=== PATIENT | female | born 1970 | race Caucasian/White ===

== ENCOUNTER → 2020-12-19 12:47 | Outpatient (BNVA) | payer OTHER, SELFPAY | PROVIDERS: PCP Physician Assistant; Visit Provider Advanced Practice Midwife ==

== ENCOUNTER 2021-12-25 09:43 | Outpatient (REF) | payer OTHER, SELFPAY ==
[2021-12-25 14:29] LABS: CT PCR NOT DETECTED (Not Detect.); NG PCR NOT DETECTED (Not Detect.)
[2021-12-26 09:19] LABS: BV Int Neg Control Negative (Negative); BV Int Pos Control Positive (Positive)
[2021-12-27 14:37] LABS: HPV mRNA E6/E7 rflx Not Detected (Not Detected)
== END 2021-12-25 09:44 | disposition home or self-care (01) ==
LOC: HO.LAB 09:43
PROVIDERS: Visit Provider Advanced Practice Midwife
DX: Z01.419 Encounter for gynecological examination (general) (routine) without abnormal findings (principal); Z11.51 Encounter for screening for human papillomavirus (HPV)
CPT/HCPCS: 87480; 87491; 87510; 87591; 87624; 87660; 88142

== ENCOUNTER 2022-04-13 10:42 | Outpatient (REF) | payer OTHER, SELFPAY ==
[2022-04-22 04:57] LABS: HPV mRNA E6/E7 rflx Not Detected (Not Detected)
== END 2022-04-13 10:43 | disposition home or self-care (01) ==
LOC: HO.LNP 10:42
PROVIDERS: Visit Provider Advanced Practice Midwife
DX: Z01.419 Encounter for gynecological examination (general) (routine) without abnormal findings (principal); Z11.51 Encounter for screening for human papillomavirus (HPV); R87.615 Unsatisfactory cytologic smear of cervix
CPT/HCPCS: 87624; 88142; 99212

== ENCOUNTER 2023-04-01 14:15 | Outpatient (AMB) | payer OTHER, SELFPAY ==
--- NOTE | 2023-04-01 14:17 | A.OFFVIS_ITS ---
Intake Vital Signs 04/01/23 14:20 Height 5 ft 1.5 in Weight 100 lb BMI 18.6 BP 108/72 Intake Visit Reasons: Annual Do not reschedule Intake Note: Scribed for Maryan Beavers CNM by Clarice Dailey medical office professional instructor, on 04/01/2023 at 2:52 PM, EST Wagon Drill Operator: Wagon Drill Operator Present (Leah) Allergies acetaminophen [Tylenol] Allergy (Intermediate, Verified 04/01/23 14:19) Vomiting aspirin Allergy (Unknown, Verified 04/01/23 14:19) ringing in the ears morphine Allergy (Unknown, Verified 04/01/23 14:19) blood pressure drop, Blood Pressure drops HPI HPI Comments History of Present Illness Details The patient is a 52 year old postmenopausal woman presenting for an annual exam.? Doing well with no obstetrician gynecologist concerns. Tries to eat healthy and stays active with exercise. Reports an increase in her sugar intake. Not sexually active. Denies vaginal itching and irritation. Denies family hx of breast, colon and ovarian cancer. Last pap smear; negative. Last mammogram UTD on colonoscopy. Informed me she will be moving out of the area in the near future. . 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 Gender identity: Female Female Reproductive History Menstrual Age of Menarche: 12 Menopause type: surgical Total pregnancies: 0 Date of last pap smear: 04/13/22 (neg pap and hpv) History of abnormal pap smear: Yes (10/16 +hpv) Date of Mammogram: 05/27/22 (Birad 1) Review of Systems Const All systems reviewed & are unremarkable except as noted in HPI and below Reports as per HPI Eyes Reports no additional complaints ENT Reports no additional complaints Card Reports no additional complaints Resp Reports no additional complaints GI Reports as per HPI and Reports no additional complaints Reports as per HPI Musc Reports no additional complaints Skin/Breast Reports as per HPI Neuro Reports no additional complaints Psych Reports no additional complaints Endo Reports no additional complaints Renato/Lymph Reports no additional complaints Aller/Immun Reports no additional complaints Physical Exam Vital Signs: Last Vital Signs BP 108/72 04/01/23 14:20 BMI result Body Mass Index 18.6 Const General: cooperative, healthy appearing, no acute distress, well developed and alert Orientation/consciousness: patient oriented x3 HEENT Head: Yes normal to inspection Eyes General: appearance normal, both eyes and all related structures Neck Neck: Yes normal visual inspection Thyroid: Thyroid normal Chest Chest palpation & inspection: normal inspection of the chest and other (no puckering, dimpling, peau de orange, retraction, discharge, masses) Breast/axilla inspection: normal inspection of the breasts Breast/axilla palpation: normal palpation of the breasts Resp Effort & Inspection: normal respiratory effort GI Inspection: Yes normal to inspection Palpation (GI): Soft to palpation Rectal Exam - Female: deferred Other: narrow inlet, smallest speculum utilized General: Yes bladder normal to palpation External Female Exam: normal external appearance and normal appearance of the urethra Speculum Exam - Vagina: normal appearance of the vagina, normal palpation, normal vaginal discharge and vagina atrophic Speculum Exam - Cervix: normal appearance of the cervix and normal palpation Bimanual exam- vagina & uterus: normal bimanual exam, normal palpation, bladder normal to palpation, normal palpation and uterus absent Bimanual Exam- Adnexa, other: no masses Skin General skin exam: no rashes or lesions noted Rashes: no rashes Neuro General: patient oriented x3 Cognition (Neuro): normal cognition Extrem General: Yes normal to inspection Psych Attitude: cooperative Thought process: Normal thought process present Assessment & Plan Assessment & Plan (1) Encounter for well woman exam with routine gynecological exam: Code(s): Z01.419 - Encounter for gynecological examination (general) (routine) without abnormal findings Plan Discussed: Current recommendations for pap smears per ASCCP guidelines. Breast awareness, periodic self breast exams and yearly mammogram. Maintain a healthy lifestyle, well balanced diet including Calcium 1,200 mg and Vitamin D 600 IU daily, and routine exercise. All of her questions and concerns were addressed to the best of my ability. RTO in 1 year for annual obstetrician gynecologist exam. Release records to new practice when confirmed. External order for mammogram placed. Orders: Orders MM tomosynthesis screening BI Today Z12.31 - Encounter for screening mammogram for malignant neoplasm of breast Coding Level of Care Code Est Pt Prev Care 40-64y(38031) Diagnoses Encounter for well woman exam with routine gynecological exam Z01.419
[2023-04-01 14:20] VITALS: BP 108/72; BMI 18.6
== END 2023-04-01 15:10 | disposition home or self-care (01) ==
PROVIDERS: PCP Nurse Practitioner Family; Visit Provider Advanced Practice Midwife
DX: Z01.419 Encounter for gynecological examination (general) (routine) without abnormal findings (principal)
CPT/HCPCS: 99396

== ENCOUNTER → 2023-04-01 14:15 | Outpatient (BNVA) | payer OTHER, SELFPAY | PROVIDERS: PCP Nurse Practitioner Family; Visit Provider Advanced Practice Midwife | DX: Z01.419 Encounter for gynecological examination (general) (routine) without abnormal findings (principal) | CPT/HCPCS: 99396 ==

== ENCOUNTER 2023-04-14 14:53 | Outpatient (AMB) | payer OTHER, SELFPAY ==
[2023-04-14 15:02] VITALS: BP 116/80; PULSE 112; O2SAT 98; BMI 18.9
--- NOTE | 2023-04-14 15:02 | A.OFFPC_ITS ---
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 Research And Development Researcher Required: No Accompanied by: Self / Same As Patient Allergies egg Allergy (Severe, Verified 04/14/23 15:37) Gastrointestinal Upset acetaminophen [Tylenol] Allergy (Intermediate, Verified 04/14/23 15:37) Vomiting aspirin Allergy (Unknown, Verified 04/14/23 15:37) ringing in the ears morphine Allergy (Unknown, Verified 04/14/23 15:37) blood pressure drop, Blood Pressure drops Medication List - Last Reconciled 04/14/23 by Vinod Jang PA-C levothyroxine 75 mcg PO DAILY Tobacco use date assessed: 04/14/23 Dental Screening Dental Screen Date: 04/14/23 Did you have a dental visit in the last 12 months?: Yes Did you have a dental problem in the last 6 months where you did not have access to dental care?: No Was dental information given to patient?: Patient has dentist HPI 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 Patient's past medical history significant for hypothyroidism (hoshimotios) , fibromyalgia, and continues on levothyroxine. .. Concern--? Reports having right ear sense congestion and feels that there is some fluid in her ear. This has been a existing condition for her entire life.. .. Hypothyroidism: Has Jaci's. Patient continues on levothyroxine 75 mcg 6 days a week. She reports her TSH has been stable Vaccines: declines flu vaccine, UTD with COVID vaccine > UTd with Tdap, UTD with shingrex (2021) . Colon cancer screening:has done Cologaurd ( 2021)- negative. . mammo: Goes to [facility] for mammo every year [facility] Medical History (Updated 04/20/23 @ 07:46 by Vinod Jang PA-C) Abnormal Pap smear of cervix Fibromyalgia Hypothyroid Surgical History History of partial hysterectomy H/O plastic surgery Family History Father Diabetes Prostate cancer Mother HTN (hypertension) Osteoporosis Maternal Grandmother Breast cancer Maternal Aunt Breast cancer Family/Other Breast cancer Household Members: Spouse Housing: House Alcohol intake: never Patient Tobacco Use Status: Never used Tobacco e-Cigarette/Vaping Use: Never Used service: No Current occupational status: employed 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 1. Little interest or pleasure in doing things: not at all 2. Feeling down, depressed, or hopeless: not at all 3. Trouble falling or staying asleep, or sleeping too much: not at all 4. Feeling tired or having little energy: not at all 5. Poor appetite or overeating: not at all 6. Feeling bad about yourself - or that you are a failure or have let yourself or your family down: not at all 7. Trouble concentrating on things, such as reading the newspaper or watching television: not at all 8. Moving or speaking so slowly that other people could have noticed. Or the opposite - being so fidgety or restless that you have been moving around a lot more than usual: not at all 9. Thoughts that you would be better off or of hurting yourself in some way: not at all Total score: 0 Depression Screening Interpretation: Negative Depression Screening Done: Yes 96517 - PHQ-9 Billing: Yes Source: Developed by Drs. Quentin Matos, Melissa Tyler, Ady Montero and colleagues, with an educational ivette from [employer]. Thrive Questionnaire Date Thrive assessed: 04/14/23 I am a: Patient What is your living situation today?: I have a steady place to live Within the past 12 months, did the food you bought not last and you didn't have the money to get more?: Never true Within the past 12 months, did you worry whether your food would run out before you got money to buy more?: Never true Do you have trouble paying for medicines?: No Do you have trouble getting transportation to medical appointments?: No Do you have trouble paying your heating and electricity bill?: No Do you have trouble taking care of your child, family member or friend?: No Do you have trouble with day-to-day activities such as bathing, preparing meals, shopping, managing finances, etc.?: No Are you currently unemployed and looking for a job?: No Are you interested in more education?: No Please select the resources that you would like help with: None Currently or been in a relationship where the following occur: no concerns reported AUDIT C Alcohol Use Questionnaire (AUDIT-C) 1. How often do you have a drink containing alcohol?: Never 3. How often do you have six or more drinks on one occasion?: Never Total Score: 0 AXEL-7 AMB Questionnaire AXEL-7 Date AXEL - 7 assessed: 04/14/23 Feeling nervous, anxious, or on edge: 0 = Not at all Not being able to stop or control worryin = Not at all Worrying too much about different things: 0 = Not at all Trouble relaxin = Not at all Being so restless that it is hard to sit still: 0 = Not at all Becoming easily annoyed or irritable: 0 = Not at all Feeling afraid as if something awful might happen: 0 = Not at all Total AXEL-7 score (0-4 normal; 5-9 mild; 10-14 moderate; 15-21 severe): 0 Source: Developed by Drs. Quentin Matos, Melissa Tyler, Ady Montero and colleagues, with an educational ivette from [employer]. AXEL-7 Assessment Billing AXEL-7 Assessment Tool: AXEL-7 Assessment 82033 Review of Systems Const Denies body aches, Denies chills, Denies excessive sweating, Denies fatigue, Denies fever(s) and Denies headache(s) Eyes Denies blurry vision ENT Denies dysphagia, Denies vertigo, Denies dizziness, Denies headache(s), Denies hearing loss and Denies tinnitus Card Denies chest pain, Denies chest pain with activity, Denies syncope, Denies irregular heart rhythm and Denies dyspnea Resp Denies chest congestion, Denies cough, Denies hemoptysis, Denies dyspnea and Denies wheezing GI Denies abdominal pain, Denies melena, Denies hematochezia, Denies coffee ground emesis, Denies dysphagia, Denies diarrhea, Denies nausea and Denies vomiting Denies urinary frequency, Denies dysuria, Denies urinary hesitancy and Denies urinary urgency Musc Denies arthralgias, Denies limited range of motion, Denies muscle cramps and Denies muscle weakness Skin/Breast Denies rash and Denies skin ulcer Neuro Denies Abnormal speech present, Denies confusion, Denies vertigo, Denies dizziness, Denies syncope, Denies headache(s), Denies memory loss and Denies seizure-like activity Psych Denies anxiety, Denies confusion, Denies depression, Denies memory loss, Denies panic attacks and Denies paranoia Endo Denies excessive sweating, Denies fatigue, Denies flushing, Denies polydipsia and Denies polyuria Aller/Immun Denies wheezing Physical exam (Primary Care) Vital Signs: Last Vital Signs Pulse 112 H 04/14/23 15:02 BP 116/80 04/14/23 15:02 Pulse Ox 98 04/14/23 15:02 Oxygen Delivery Method Room Air 04/14/23 15:02 BMI result Body Mass Index 18.9 Tobacco/Smoking Status: Tobacco use Status Tobacco use date assessed 04/14/23 04/14/23 15:19 Patient Tobacco Use Status Never used Tobacco 04/14/23 15:05 e-Cigarette/Vaping Use Never Used 04/14/23 15:19 PHQ-9: PHQ-9 Score PHQ-9: Total score 0 04/14/23 15:46 Depression Screening Interpretation: Negative Thrive Assessment: Date of Thrive Assessment Date Thrive assessed 04/14/23 04/14/23 15:19 Currently or been in a relationship where the following occur: no concerns reported Const General: cooperative, comfortable, no acute distress, alert and awake; No confusion Orientation/consciousness: oriented to person, oriented to place, patient oriented x3 and No confusion HENMT Head: Yes normocephalic Ears: external ears normal and TM's normal bilaterally Face and sinus: No sinus tenderness Mouth: Normal oral and palatal mucosa present and tongue normal Teeth and gingiva: dentition normal and gingiva normal Throat: Yes posterior oropharynx normal, Yes tonsils normal and Yes uvula midline Eyes Conjunctivae: conjunctivae normal Sclerae: sclerae normal Pupils: Equal, round and reactive pupils present EOM: EOMs intact bilaterally Direct Ophthalmoscopy: No no photophobia Neck Neck: Yes no lymphadenopathy, No tender and Yes no JVD Thyroid: Thyroid normal Carotids: no bruits Chest Chest palpation & inspection: no tenderness Resp Effort & Inspection: normal respiratory effort, no audible wheezes, not labored and no stridor Auscultation: no crackles, no rales, no rhonchi and no wheezes Cardio Jugular venous distension: no JVD Rate: regular rate, not bradycardic and not tachycardic Rhythm: regular rhythm Bruits: no carotid bruits Peripheral pulses: Peripheral pulses 2+ throughout GI Inspection: Yes normal to inspection, No abdominal wall ecchymosis and No visible herniation Palpation (GI): Soft to palpation, nontender, no guarding, not rigid and No hepatosplenomegaly present Auscultation: normoactive bowel sounds General: Yes no CVA tenderness Back/Spine/Pelvis Back: no CVA tenderness and No back tenderness Cervical Spine: cervical ROM normal Thoracic/Lumbar Spine: thoracic and lumbar spine normal to inspection, straight leg raise negative bilaterally, No thoraco-lumbar ROM limited and No lumbar spinal tenderness Skin Lesions: no lesions Rashes: no rashes Wounds: no wounds Neuro General: oriented to person, oriented to place, patient oriented x3, CN's II-XI intact bilaterally and No confusion Cranial nerves: Yes Equal, round and reactive pupils present and Yes Normal accommodation reflex present Cognition (Neuro): normal cognition Speech: No Abnormal speech present Gait exam (Neuro): Normal gait present Motor exam (neuro): 5/5 motor strength present throughout Extrem Right upper extremity: full ROM; no cyanosis Left upper extremity: full ROM; no cyanosis Right lower extremity: no edema Left lower extremity: no edema Psych Appearance: grossly normal Mental Status: mental status grossly normal Affect: normal affect Attitude: cooperative Thought process: Normal thought process present Assessment and Plan Assessment & Plan (1) Annual physical exam: Code(s): Z00.00 - Encounter for general adult medical examination without abnormal findings (2) Screening for diabetes mellitus (DM): Code(s): Z13.1 - Encounter for screening for diabetes mellitus (3) Hypothyroid: Code(s): E03.9 - Hypothyroidism, unspecified Qualifiers: Hypothyroidism type: unspecified Qualified Code(s): E03.9 - Hypothyroidism, unspecified Plan: Continues on levothyroxine 75 mcg 6 times a week. She reports her TSHs have been stable with his weekly dose. (4) ETD (eustachian tube dysfunction): Code(s): H69.90 - Unspecified Eustachian tube disorder, unspecified ear Qualifiers: Laterality: right Qualified Code(s): H69.91 - Unspecified Eustachian tube disorder, right ear Plan: Patient does seem to have eustachian tube dysfunction. Advised on allergy medication and nasal spray. She does have a history of a cleft palate which likely is contributing to her eustachian tube dysfunction. She does follow in ENT. (5) History of breast cancer in female: Code(s): Z85.3 - Personal history of malignant neoplasm of breast Plan: Gets mammograms done at [facility] an annual basis since she was in her 30s to her family history of breast cancer. Orders: Orders TSH reflex Free T4 04/14/23 E03.9 - Hypothyroidism, unspecified Comprehensive [place]. Panel Fast 04/14/23 Z13.1 - Encounter for screening for diabetes mellitus Medications: Changed From levothyroxine 75 mcg PO DAILY E03.9 - Hypothyroidism, unspecified To levothyroxine 75 mcg PO DAILY 90 days 90 caps 1RF E03.9 - Hypothyroidism, unspecified Coding Level of Care Code New Pt Prev Care 40-64y(82648) Diagnoses Annual physical exam Z00.00 Screening for diabetes mellitus (DM) Z13.1 Hypothyroidism, unspecified type E03.9 Hypothyroidism type: unspecified Dysfunction of right eustachian tube H69.91 Laterality: right History of breast cancer in female Z85.3 Additional Codes AXEL-7 Assessment Billing - AXEL-7 Assessment Tool: AXEL-7 Assessment [id number] ([id number])
== END 2023-04-14 15:57 | disposition home or self-care (01) ==
PROVIDERS: PCP Nurse Practitioner Family; Visit Provider Physician Assistant
DX: Z00.00 Encounter for general adult medical examination without abnormal findings (principal); Z13.1 Encounter for screening for diabetes mellitus; E03.9 Hypothyroidism, unspecified; H69.91 Unspecified Eustachian tube disorder, right ear; Z85.3 Personal history of malignant neoplasm of breast
CPT/HCPCS: 99386

== ENCOUNTER 2023-04-20 08:44 | Outpatient (REF) | payer OTHER, SELFPAY ==
[2023-04-20 10:12] LABS: Alanine Aminotransferase 13 U/L (0-31); Albumin Level 4.3 g/dL (3.5-5.0); Alkaline Phosphatase 70 U/L (39-117); Anion Gap 10 (12-20); Aspartate Amino Transferase 18 U/L (5-31); Bilirubin Total 0.6 mg/dL (0.0-1.0); Blood Urea Nitrogen 13 mg/dL (9-16); Calcium 9.3 mg/dL (8.4-10.2); Carbon Dioxide 31 mmol/L (22-29); Chloride 104 mmol/L (96-108); Estimated Glomerular Filt Rate > 60; Glucose Fasting 97 mg/dL (60-99); Potassium 4.2 mmol/L (3.3-5.1); Sodium 141 mmol/L (135-145); Total Protein 7.1 g/dL (6.5-8.0)
== END 2023-04-20 08:45 | disposition home or self-care (01) ==
LOC: HO.LAB 08:44
PROVIDERS: PCP Physician Assistant; Visit Provider Physician Assistant
DX: Z13.1 Encounter for screening for diabetes mellitus (principal); E03.9 Hypothyroidism, unspecified
CPT/HCPCS: 36415; 80053; 84443

== ENCOUNTER 2024-04-05 08:14 | Outpatient (AMB) | payer OTHER, SELFPAY ==
[2024-04-05 08:17] VITALS: BP 108/62; BMI 17.2
--- NOTE | 2024-04-05 08:17 | A.OFFVIS_ITS ---
Vital Signs 04/05/24 08:17 Height 5 ft 5 in Weight 103 lb 4 oz BMI 17.2 BP 108/62 Blood Pressure Location Lt brachial Position Sitting Intake Visit Reasons: Tonja Intake Note: Pt feels like her bladder is dropping. 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 She is doing well with concerns: feels her bladder is dropping, admits to le akage of urine not stress related, does not feel the urine leaking out. Has experienced these symptoms for years and feels this increased over time. Had a brown discharge in November x1. Attempting to eat a healthy diet with calcium and vitamin D and stays active with exercise-when capable due to limitations with fibromyalgia. History of right hip pain, long-term pelvic issues following a bone graft. Currently not sexually active, long history of vaginismus. Denies any vaginal dryness or irritation. Last pap smear; 2021. Hx partial hyst. Last mammogram; 2023. Colonoscopy is UTD. Denies any family history of breast, ovarian or colon cancer. 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 Current occupational exposures/hazards: No Gender identity: Female Cognitive needs: No Hearing needs: No Vision needs: Yes Female Reproductive History Menstrual Age of Menarche: 12 Menopause type: surgical Total pregnancies: 0 Date of last pap smear: 04/13/22 History of abnormal pap smear: Yes (10/16 +HPV) History of STI: No Date of Mammogram: 05/31/23 History of abnormal mammogram: No Review of Systems Const All systems reviewed & are unremarkable except as noted in HPI and below Reports as per HPI Eyes Reports no additional complaints ENT Reports no additional complaints Card Reports no additional complaints Resp Reports no additional complaints GI Reports as per HPI and Reports no additional complaints Reports as per HPI Musc Reports no additional complaints Skin/Breast Reports as per HPI Neuro Reports no additional complaints Psych Reports no additional complaints Endo Reports no additional complaints Renato/Lymph Reports no additional complaints Aller/Immun Reports no additional complaints Physical Exam Vital Signs: Last Vital Signs BP 108/62 04/05/24 08:17 BMI result Body Mass Index 17.2 Const General: cooperative, healthy appearing, no acute distress, well developed and alert Orientation/consciousness: patient oriented x3 HEENT Head: Yes normal to inspection Eyes General: appearance normal, both eyes and all related structures Neck Neck: Yes normal visual inspection Thyroid: Thyroid normal Chest Chest palpation & inspection: normal inspection of the chest and other (no puckering, dimpling, peau de orange, retraction, discharge, masses) Breast/axilla inspection: normal inspection of the breasts Breast/axilla palpation: normal palpation of the breasts Resp Effort & Inspection: normal respiratory effort GI Inspection: Yes normal to inspection Palpation (GI): Soft to palpation Rectal Exam - Female: deferred General: Yes bladder normal to palpation External Female Exam: normal external appearance and normal appearance of the urethra Speculum Exam - Vagina: normal appearance of the vagina, normal palpation, normal vaginal discharge and vagina atrophic (Uncomfortable with small Best speculum) Speculum Exam - Cervix: normal appearance of the cervix and normal palpation Bimanual exam- vagina & uterus: normal bimanual exam, normal palpation, bladder normal to palpation, normal palpation, non-tender and uterus absent Bimanual Exam- Adnexa, other: no masses and Other (No significant prolapse noted with the exam) Skin General skin exam: no rashes or lesions noted Rashes: no rashes Neuro General: patient oriented x3 Cognition (Neuro): normal cognition Extrem General: Yes normal to inspection Psych Attitude: cooperative Thought process: Normal thought process present Assessment & Plan Assessment & Plan (1) Encounter for annual routine gynecological examination: Code(s): Z01.419 - Encounter for gynecological examination (general) (routine) without abnormal findings Category: Medical (2) Incontinence of urine: Code(s): R32 - Unspecified urinary incontinence Qualifiers: Urinary Incontinence type: unspecified incontinence Qualified Code(s): R32 - Unspecified urinary incontinence Plan Discussed: Current recommendations for pap smears per ASCCP guidelines. Breast awareness, periodic self breast exams and yearly mammogram. Maintain a healthy lifestyle, well balanced diet including Calcium 1,200 mg and Vitamin D 600 IU daily, and routine exercise. Options for urology referral, pelvic floor physical therapy-patient would prefer to be referred for therapy at this time she has a new insurance is unsure if it is covered here she is going to check her policy and let me know where she would like to be seen. Booklet on PT therapy department given. Contact the office with any postmenopausal bleeding. Patient verbalizes understanding and agrees to the plan of care. She was given opportunity to ask questions and all questions were answered to the best of my ability. RTO in 1 year for annual silk printer exam. This note is constructed using voice recognition software. While every effort has been made to ensure accuracy, tip cutter errors may have been included. Coding Level of Care Code Est Pt Prev Care 40-64y(26832) Diagnoses Encounter for annual routine gynecological examination Z01.419 Urinary incontinence, unspecified type R32 Urinary Incontinence type: unspecified incontinence
== END 2024-04-05 08:57 | disposition home or self-care (01) ==
PROVIDERS: PCP Physician Assistant; Visit Provider Advanced Practice Midwife
DX: Z01.419 Encounter for gynecological examination (general) (routine) without abnormal findings (principal); R32 Unspecified urinary incontinence
CPT/HCPCS: 99396

== ENCOUNTER → 2024-04-05 08:14 | Outpatient (BNVA) | payer OTHER, SELFPAY | PROVIDERS: PCP Physician Assistant; Visit Provider Advanced Practice Midwife | DX: Z01.419 Encounter for gynecological examination (general) (routine) without abnormal findings (principal); N94.2 Vaginismus; R32 Unspecified urinary incontinence | CPT/HCPCS: 99396 ==

== ENCOUNTER 2024-04-17 14:59 | Outpatient (AMB) | payer OTHER, SELFPAY ==
--- NOTE | 2024-04-17 15:00 | A.OFFPC_ITS ---
Vital Signs 04/17/24 15:06 Height 5 ft 5 in Weight 103 lb BMI 17.1 BP 112/76 Blood Pressure Location Lt brachial Position Sitting Pulse 140 H Pulse Source Pulse Oximeter Pulse Oximetry (%) 99 Oxygen Delivery Method Room Air Intake Visit Reasons: annual exam Intake Note: Patient is here today for a physical. Deputy Chief Counsel Required: No Accompanied by: Self / Same As Patient Allergies egg Allergy (Severe, Verified 04/17/24 15:07) Gastrointestinal Upset acetaminophen [Tylenol] Allergy (Intermediate, Verified 04/17/24 15:07) Vomiting aspirin Allergy (Unknown, Verified 04/17/24 15:07) ringing in the ears morphine Allergy (Unknown, Verified 04/17/24 15:07) blood pressure drop, Blood Pressure drops Medication List - Last Reconciled 04/17/24 by Vinod Jang PA-C levothyroxine 75 mcg PO DAILY 90 days Tobacco use date assessed: 04/17/24 Dental Screening Dental Screen Date: 04/17/24 Did you have a dental visit in the last 12 months?: Yes Did you have a dental problem in the last 6 months where you did not have access to dental care?: No Was dental information given to patient?: Patient has dentist HPI annual exam HPI Details Patient is a 53-year-old female here today for a annual physical. Patient's past medical history significant for hypothyroidism (hoshimotios) , fibromyalgia, and continues on levothyroxine. .. Concern--? Reports having right ear sense congestion and feels that there is some fluid in her ear. This has been a existing condition for her entire life. She will follow up with her ENT specialist. .. 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 She would like to see spike machine heater for further evaluation and possible treatment options., She is also interested in getting screen for osteoporosis as she has some risk factors including thin stature, autoimmune thyroid disease and family history of osteoporosis. .. Hypothyroidism: Has Jaci's. Patient continues on levothyroxine 75 mcg 6 days a week. She reports her TSH has been stable Vaccines: declines flu vaccine, UTD with COVID vaccine > UTd with Tdap, UTD with shingrex (2021) . Colon cancer screening:has done Cologaurd ( 2021)- negative. . 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 . mammo: Needs screening mammo in early 2024 . [facility] Medical History (Updated 04/18/24 @ 07:37 by Vinod Jang PA-C) [place] angioma Abnormal Pap smear of cervix Fibromyalgia Hypothyroid Surgical History History of partial hysterectomy H/O plastic surgery Family History Father Diabetes Prostate cancer Mother HTN (hypertension) Osteoporosis Maternal Grandmother Breast cancer Maternal Aunt Breast cancer Family/Other Breast cancer Social History Household Members: Spouse Housing: House Alcohol intake: never Patient Tobacco Use Status: Never used Tobacco e-Cigarette/Vaping Use: Never Used service: No Current occupational status: employed 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 1. Little interest or pleasure in doing things: not at all 2. Feeling down, depressed, or hopeless: not at all 3. Trouble falling or staying asleep, or sleeping too much: several days 4. Feeling tired or having little energy: not at all 5. Poor appetite or overeating: not at all 6. Feeling bad about yourself - or that you are a failure or have let yourself or your family down: not at all 7. Trouble concentrating on things, such as reading the newspaper or watching television: not at all 8. Moving or speaking so slowly that other people could have noticed. Or the opposite - being so fidgety or restless that you have been moving around a lot more than usual: not at all 9. Thoughts that you would be better off or of hurting yourself in some way: not at all Total score: 1 Depression Screening Interpretation: Negative Depression Screening Done: Yes 51510 - PHQ-9 Billing: Yes Source: Developed by Drs. Quentin Matos, Melissa Tyler, Ady Montero and colleagues, with an educational ivette from [employer]. Thrive Questionnaire Date Thrive assessed: 04/17/24 I am a: Patient What is your living situation today?: I have a steady place to live Within the past 12 months, did the food you bought not last and you didn't have the money to get more?: I choose not to answer this question Within the past 12 months, did you worry whether your food would run out before you got money to buy more?: I choose not to answer this question Do you have trouble paying for medicines?: I choose not to answer this question Do you have trouble getting transportation to medical appointments?: No Do you have trouble paying your heating and electricity bill?: I choose not to answer this question Do you have trouble taking care of your child, family member or friend?: I choose not to answer this question Do you have trouble with day-to-day activities such as bathing, preparing meals, shopping, managing finances, etc.?: No Are you currently unemployed and looking for a job?: No Are you interested in more education?: I choose not to answer this question Please select the resources that you would like help with: None Currently or been in a relationship where the following occur: No concerns reported THRIVE Score: 0 AUDIT C Alcohol Use Questionnaire (AUDIT-C) 1. How often do you have a drink containing alcohol?: Never 3. How often do you have six or more drinks on one occasion?: Never Total Score: 0 AXEL-7 AMB Questionnaire AXEL-7 Date AXEL - 7 assessed: 04/17/24 Feeling nervous, anxious, or on edge: 1 = Several days Not being able to stop or control worryin = Several days Worrying too much about different things: 0 = Not at all Trouble relaxin = Several days Being so restless that it is hard to sit still: 0 = Not at all Becoming easily annoyed or irritable: 0 = Not at all Feeling afraid as if something awful might happen: 1 = Several days Total AXEL-7 score (0-4 normal; 5-9 mild; 10-14 moderate; 15-21 severe): 4 Source: Developed by Drs. Quentin Matos, Melissa Tyler, Ady Montero and colleagues, with an educational ivette from [employer]. AXEL-7 Assessment Billing AXEL-7 Assessment Tool: AXEL-7 Assessment 50077 Review of Systems Const Denies body aches, Denies chills, Denies excessive sweating, Denies fatigue, Denies fever(s) and Denies headache(s) Eyes Denies blurry vision ENT Denies dysphagia, Denies vertigo, Denies dizziness, Denies headache(s), Denies hearing loss and Denies tinnitus Card Denies chest pain, Denies chest pain with activity, Denies syncope, Denies irregular heart rhythm and Denies dyspnea Resp Denies chest congestion, Denies cough, Denies hemoptysis, Denies dyspnea and Denies wheezing GI Denies abdominal pain, Denies melena, Denies hematochezia, Denies coffee ground emesis, Denies dysphagia, Denies diarrhea, Denies nausea and Denies vomiting Denies urinary frequency, Denies dysuria, Denies urinary hesitancy and Denies urinary urgency Musc Reports arthralgias, Denies limited range of motion, Denies muscle cramps and Denies muscle weakness Skin/Breast Denies rash and Denies skin ulcer Neuro Denies Abnormal speech present, Denies confusion, Denies vertigo, Denies dizziness, Denies syncope, Denies headache(s), Denies memory loss and Denies seizure-like activity Psych Denies anxiety, Denies confusion, Denies depression, Denies memory loss, Denies panic attacks and Denies paranoia Endo Denies excessive sweating, Denies fatigue, Denies flushing, Denies polydipsia and Denies polyuria Aller/Immun Denies wheezing Physical exam (Primary Care) Vital Signs: Last Vital Signs Pulse 140 H 04/17/24 15:06 BP 112/76 04/17/24 15:06 Pulse Ox 99 04/17/24 15:06 Oxygen Delivery Method Room Air 04/17/24 15:06 BMI result Body Mass Index 17.1 Tobacco/Smoking Status: Tobacco use Status Tobacco use date assessed 04/17/24 04/17/24 15:01 Patient Tobacco Use Status Never used Tobacco 04/17/24 15:01 e-Cigarette/Vaping Use Never Used 04/17/24 15:01 PHQ-9: PHQ-9 Score PHQ-9: Total score 1 04/17/24 15:08 Depression Screening Interpretation: Negative Thrive Assessment: Date of Thrive Assessment Date Thrive assessed 04/17/24 04/17/24 15:01 Currently or been in a relationship where the following occur: No concerns reported Const General: cooperative, comfortable, no acute distress, alert and awake; No confusion Orientation/consciousness: oriented to person, oriented to place, patient oriented x3 and No confusion HENMT Head: Yes normocephalic Ears: external ears normal and TM's normal bilaterally Face and sinus: No sinus tenderness Mouth: Normal oral and palatal mucosa present and tongue normal Teeth and gingiva: dentition normal and gingiva normal Throat: Yes posterior oropharynx normal, Yes tonsils normal and Yes uvula midline Eyes Conjunctivae: conjunctivae normal Sclerae: sclerae normal Pupils: Equal, round and reactive pupils present EOM: EOMs intact bilaterally Direct Ophthalmoscopy: No no photophobia Neck Neck: Yes no lymphadenopathy, No tender and Yes no JVD Thyroid: Thyroid normal Carotids: no bruits Chest Chest palpation & inspection: no tenderness Resp Effort & Inspection: normal respiratory effort, no audible wheezes, not labored and no stridor Auscultation: no crackles, no rales, no rhonchi and no wheezes Cardio Jugular venous distension: no JVD Rate: regular rate, not bradycardic and not tachycardic Rhythm: regular rhythm Bruits: no carotid bruits Peripheral pulses: Peripheral pulses 2+ throughout GI Inspection: Yes normal to inspection, No abdominal wall ecchymosis and No v isible herniation Palpation (GI): Soft to palpation, nontender, no guarding, not rigid and No hepatosplenomegaly present Auscultation: normoactive bowel sounds General: Yes no CVA tenderness Back/Spine/Pelvis Back: no CVA tenderness and No back tenderness Cervical Spine: cervical ROM normal Thoracic/Lumbar Spine: thoracic and lumbar spine normal to inspection, straight leg raise negative bilaterally, No thoraco-lumbar ROM limited and No lumbar spinal tenderness Skin Lesions: no lesions Rashes: no rashes Wounds: no wounds Neuro General: oriented to person, oriented to place, patient oriented x3, CN's II-XI intact bilaterally and No confusion Cranial nerves: Yes Equal, round and reactive pupils present and Yes Normal accommodation reflex present Cognition (Neuro): normal cognition Speech: No Abnormal speech present Gait exam (Neuro): Normal gait present Motor exam (neuro): 5/5 motor strength present throughout Extrem Right upper extremity: full ROM; no cyanosis Left upper extremity: full ROM; no cyanosis Right lower extremity: no edema Left lower extremity: no edema Psych Appearance: grossly normal Mental Status: mental status grossly normal Affect: normal affect Attitude: cooperative Thought process: Normal thought process present Office Procedures Flu Questionnaire Does the patient have a severe egg allergy?: No Immunizations Fluarix Triv [id number] (PF) 45 mcg (15 mcg x 3)/0.5 mL IM syringe Performing Provider: Vinod Jang PA-C [place] [facility] Documented (not given) by: EILEEN Kumar on 04/17/24 15:07 Reason Not Given: Patient Refused Coding Level of Care Code Est Pt Prev Care 40-64y(49894) Diagnoses Annual physical exam Z00.00 Hypothyroidism, unspecified type E03.9 Hypothyroidism type: unspecified Screening for diabetes mellitus (DM) Z13.1 Pelvic pain in female R10.2 Post-menopausal Z78.0 Family history of osteoporosis Z82.62 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 Will check TSH to assure normal (3) Screening for diabetes mellitus (DM): Code(s): Z13.1 - Encounter for screening for diabetes mellitus Category: Medical Plan: As per HPI (4) Pelvic pain in female: Code(s): R10.2 - Pelvic and perineal pain Category: Medical Plan: Patient does report having a pelvic floor bladder issue told to her by her healthcare technician. She will like to do physical/pelvic floor therapy (5) Post-menopausal: Code(s): Z78.0 - Asymptomatic menopausal state Category: Medical Plan: Patient would like bone density screening. 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 She would like to see rheumatology for further evaluation and treatment options. Orders: Orders Influenza [id number] Immunization 04/17/24 Z23 - Encounter for immunization Comprehensive [place]. Panel Fast 04/17/24 Z13.1 - Encounter for screening for diabetes mellitus XR DEXA axial skeleton 04/17/24 Z78.0 - Asymptomatic menopausal state, Z82.62 - Family history of osteoporosis TSH reflex Free T4 04/17/24 E03.9 - Hypothyroidism, unspecified PT Evaluation and Treatment 04/17/24 R10.2 - Pelvic and perineal pain Referrals Rheumatology Referral Q79.60 - Teofilo-Danlos syndrome, unspecified
[2024-04-17 15:06] VITALS: BP 112/76; PULSE 140; O2SAT 99; BMI 17.1
== END 2024-04-17 15:38 | disposition home or self-care (01) ==
PROVIDERS: PCP Physician Assistant; Visit Provider Physician Assistant
DX: Z00.00 Encounter for general adult medical examination without abnormal findings (principal); E03.9 Hypothyroidism, unspecified; Z13.1 Encounter for screening for diabetes mellitus; R10.2 Pelvic and perineal pain; Z78.0 Asymptomatic menopausal state; Z82.62 Family history of osteoporosis; Q79.60 Ehlers-Danlos syndrome, unspecified

== ENCOUNTER → 2024-04-17 14:59 | Outpatient (BNVA) | payer OTHER, SELFPAY | PROVIDERS: PCP Physician Assistant; Visit Provider Physician Assistant | DX: Z00.00 Encounter for general adult medical examination without abnormal findings (principal); E03.9 Hypothyroidism, unspecified; R10.2 Pelvic and perineal pain; Q79.60 Ehlers-Danlos syndrome, unspecified; Z78.0 Asymptomatic menopausal state; Z82.62 Family history of osteoporosis | CPT/HCPCS: 90471; 96127; 99396 ==

== ENCOUNTER 2024-04-19 19:43 | Emergency (ER) | payer OTHER, SELFPAY ==
--- NOTE | ~2024-04-19 | US_ITS ---
EXAMINATION: US VENOUS LEFT LOWER EXTREMITY CLINICAL INFORMATION: Left lower extremity pain with ecchymotic lump COMPARISON: None. TECHNIQUE: Doppler spectral analysis and color flow Doppler imaging was performed of the left lower extremity. Compression and augmentation maneuvers were performed. FINDINGS: The left common femoral, femoral, popliteal and calf veins were well-identified and normal. They demonstrate normal compressibility and color fill-in. The area of clinical concern in the posterior calf there is a 1.2 x 0.5 x 1.2 cm ill-defined area with a small cystic area within it. This is best appreciated on the cine loops. US/US venous duplex LE IMPRESSION: 1. No evidence for left lower extremity deep vein thrombosis. 2. Small ill-defined area in the posterior calf with a small cystic area within it. This could represent a small hematoma. Electronically signed by: Madi Rodriguez MD 04/19/2024 09:53 PM EST
--- NOTE | 2024-04-19 19:48 | ED_ITS ---
HPI - Extremity Injury (Lower) General Chief Complaint: Extremity Problem Stated Complaint: ? blood clot leg Time Seen by Provider: 04/19/24 22:17 History of Present Illness ED Provider: Harpreet RESTREPO Narrative: The patient is a 53-year-old woman who says that several days ago she developed what seemed to be bruising in the back of her left lower leg. She noticed this after she had done a lot of walking in some boots that were somewhat tight. She had not had any injury. She was surprised that she had what seemed to be bruising. The discoloration of the bruising improved over the next few days but today she noticed a hard lump in the tissue of her calf and she was worried it might be a blood clot and so came to the emergency room. Related Data Previous Rx's ?Medication ?Instructions ?Recorded levothyroxine 75 mcg tablet 75 mcg PO DAILY 90 days #90 tabs 04/10/24 Allergies Allergy/AdvReac Type Severity Reaction Status Date / Time egg Allergy Severe Gastrointestinal Verified 04/19/24 19:52 Upset acetaminophen [Tylenol] Allergy Intermediate Vomiting Verified 04/19/24 19:52 aspirin Allergy Unknown ringing in Verified 04/19/24 19:52 the ears morphine Allergy Unknown blood Verified 04/19/24 19:52 pressure drop, Blood Pressure drops Review of Systems 2 Review of Systems: Yes all other systems are reviewed and are negative [facility] Past Medical History Medical History (Updated 04/19/24 @ 22:25 by Larry Mullins MD) Kauffman angioma Abnormal Pap smear of cervix Fibromyalgia Hypothyroid Surgical History History of partial hysterectomy H/O plastic surgery Family History Family History Father Diabetes Prostate cancer Mother HTN (hypertension) Osteoporosis Maternal Grandmother Breast cancer Maternal Aunt Breast cancer Family/Other Breast cancer Social History Social History Household Members: Spouse Housing: House Alcohol intake: never Patient Tobacco Use Status: Never used Tobacco e-Cigarette/Vaping Use: Never Used Advance Directives: No Advance Directives Information Provided: No service: No Current occupational status: employed 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 The patient does not appear in any distress. HEENT: Other: Face is symmetrical. Mucous membranes moist. Eyes: General: appearance normal, both eyes and all related structures Neck: Neck: Yes full ROM Resp: Effort & Inspection: normal respiratory effort Auscultation: clear to auscultation bilaterally Cardio: Rate: regular rate Rhythm: regular rhythm Heart sounds: S1 normal heart sound present and S2 normal heart sound present Skin: Other: There is some slight yellowish discoloration to the skin of the left lower calf in a fairly localized distribution. Neuro: Other: The patient is awake and alert with a normal mental status. Cranial nerves are grossly intact. She moves her extremities normally and seems grossly neurologically intact. Extrem: Other: The patient has a small tender lump in the soft tissues of her left lower calf underlying some yellowish skin discoloration. This is a very discrete lump about 1 cm in size. The calf is otherwise benign. Course Course Course Narrative: This is a Rapid Medical Exam performed in triage by Katie Montalvo PA-C. Full HPI, ROS and PE to be performed by primary ED provider. 53 yo F w/PMHx hypothyroid, Teofilo-Danlos, presenting to the ED c/o LLE pain, ecchymosis and palpable lump since Wednesday s/p walking around shopping. States area was initially red/brown with central clearing ?tick bite. Denies hx clots, or AC use, SOB, travel, cigarette smoking PE: tachycardic, +left calf with palpable lump. +faint discoloration. no erythema/fluctuance or drainage. Plan: US Medical Decision Making Medical Decision Making MDM Narrative: The patient is a 53-year-old woman who came to the emergency room for evaluation of a problem in her left calf. She was worried she might have a DVT. Her DVT ultrasound is negative. She seems to have a hematoma in the calf. She was reassured and discharged. Lab Data 04/19/24 20:04 04/19/24 20:04 Labs: Lab Results 04/19/24 Range/Units 20:04 WBC 4.9 (4.8-10.8) X10*3/uL RBC 4.66 (4.20-5.50) X10*6/uL Hgb 13.0 (12.0-16.0) g/dl Hct 39.5 (37.0-47.0) % MCV 84.8 (80.0-98.0) fL MCH 27.9 (27.0-33.0) pg MCHC 32.9 (31.0-35.0) g/dl RDW 12.8 (11.0-16.0) % Plt Count 295 (160-400) X10*3/uL MPV 8.6 L (9.4-12.3) fL Immature Gran % (Auto) 0.2 (0.0-0.4) % Neut % (Auto) 57.8 (45-73) % Lymph % (Auto) 31.1 (20-40) % Cottle % (Auto) 7.9 (2-11) % Eos % (Auto) 1.8 (0-4) % Baso % (Auto) 1.2 (0-2) % Lymph # (Auto) 1.5 (1.2-4.9) X10*3/uL Cottle # (Auto) 0.4 (0.1-1.2) X10*3/uL Eos # (Auto) 0.1 (0.0-0.4) X10*3/uL Baso # (Auto) 0.1 (0.0-0.2) X10*3/uL Abs Immat Gran (auto) 0.01 (0.00-0.03) X10*3/uL Absolute Neuts (auto) 2.8 (2.0-8.3) x10*3/uL Absolute Nucleated RBC 0.000 (0.0-0.012) X10*3/uL Nucleated RBC % (auto) 0.0 (0.0-0.2) /100WBC PT 11.5 (10.9-12.4) SEC INR 1.0 (0.9-1.1) Sodium 143 (135-145) mmol/L Potassium 3.9 (3.3-5.1) mmol/L Chloride 101 (96-108) mmol/L Carbon Dioxide 29 (22-29) mmol/L Anion Gap 17 (12-20) BUN 13 (9-16) mg/dL Creatinine 0.88 (0.5-1.4) mg/dL Estim Creat Clear Calc 53.3 Estimated GFR > 60 Random Glucose 179 H (60-115) mg/dL Calcium 9.3 (8.4-10.2) mg/dL Total Bilirubin 0.5 (0.0-1.0) mg/dL Direct Bilirubin 0.1 (0.0-0.5) mg/dL AST 27 (5-31) U/L ALT 23 (0-31) U/L Alkaline Phosphatase 68 (39-117) U/L Total Protein 7.0 (6.5-8.0) g/dL Albumin 4.3 (3.5-5.0) g/dL Discharge Plan Discharge Clinical Impression: Contusion of left calf Patient Disposition: Home, Self-Care Additional Instructions: I believe that you sustained some bruising to the back of your left leg. There is no evidence of a clot. I expect that this should continue to get better on its own. Please contact your regular medical provider if any other questions. Return to the emergency room if significantly worse. Prescriptions: No Action levothyroxine 75 mcg tablet 75 mcg PO DAILY 90 Days Qty: 90 1RF Referrals: Vinod Jang PA-C [Primary Care Provider] - (Left calf hematoma) Interventions: ED Discharge Assessment Last Done: 04/19/24 22:53 Discharge Date/Time: 04/19/24 22:54 Print Language: Lithuanian
[2024-04-19 19:49] VITALS: BP 151/87; PULSE 119; RESP 18; TEMP 36.7; O2SAT 100; BMI 19.5
[2024-04-19 20:12] LABS: Basophils Absolute Auto 0.1 X10*3/uL (0.0-0.2); Basophils Percent Auto 1.2 % (0-2); Eosinophils Absolute Auto 0.1 X10*3/uL (0.0-0.4); Eosinophils Percent Auto 1.8 % (0-4); Hematocrit 39.5 % (37.0-47.0); Imm Gran Abs Auto 0.01 X10*3/uL (0.00-0.03); Imm Gran Pct Auto 0.2 % (0.0-0.4); Lymphocytes Absolute Auto 1.5 X10*3/uL (1.2-4.9); Lymphocytes Percent Auto 31.1 % (20-40); MANUAL DIFF FLAG NO; Mean Corpuscular HGB Conc 32.9 g/dl (31.0-35.0); Mean Corpuscular Hemoglobin 27.9 pg (27.0-33.0); Mean Corpuscular Volume 84.8 fL (80.0-98.0); Mean Platelet Volume 8.6 fL (9.4-12.3); Monocytes Absolute Auto 0.4 X10*3/uL (0.1-1.2); Monocytes Percent Auto 7.9 % (2-11); Neutrophils Absolute Auto 2.8 x10*3/uL (2.0-8.3); Neutrophils Percent Auto 57.8 % (45-73); Platelet Count 295 X10*3/uL (160-400); Red Blood Count 4.66 X10*6/uL (4.20-5.50); Red Cell Distribution Width 12.8 % (11.0-16.0); White Blood Count 4.9 X10*3/uL (4.8-10.8)
[2024-04-19 20:21] LABS: Prothrombin Time 11.5 SEC (10.9-12.4)
[2024-04-19 20:55] LABS: Alanine Aminotransferase 23 U/L (0-31); Albumin Level 4.3 g/dL (3.5-5.0); Alkaline Phosphatase 68 U/L (39-117); Anion Gap 17 (12-20); Aspartate Amino Transferase 27 U/L (5-31); Bilirubin Direct 0.1 mg/dL (0.0-0.5); Bilirubin Total 0.5 mg/dL (0.0-1.0); Blood Urea Nitrogen 13 mg/dL (9-16); Calcium 9.3 mg/dL (8.4-10.2); Carbon Dioxide 29 mmol/L (22-29); Chloride 101 mmol/L (96-108); Creatinine Clr Calc Pharmacy 53.3; Estimated Glomerular Filt Rate > 60; Glucose Random 179 mg/dL (60-115); Potassium 3.9 mmol/L (3.3-5.1); Sodium 143 mmol/L (135-145)
[2024-04-19 22:17] VITALS: BP 115/78; PULSE 114; RESP 16; TEMP 36.4; O2SAT 97
[2024-04-19 22:53] VITALS: BP 115/78; PULSE 114; RESP 16; TEMP 36.4; O2SAT 97
[2024-04-21 13:04] LABS: Lyme Abs Screen <0.90 index
[2024-04-21 19:54] LABS: A. Phagocytphilium DNA,RT-PCR NOT DETECTED (NOT DETECTED); Babesia Microti DNA, RT-PCR NOT DETECTED (NOT DETECTED); Borrelia Miyamotoi,DNA RT-PCR NOT DETECTED (NOT DETECTED); E.Chaffeensis DNA RT-PCR NOT DETECTED (NOT DETECTED); Lyme(Borrelia ssp)DNA RT-PCR NOT DETECTED (NOT DETECTED)
== END 2024-04-19 22:54 | disposition home or self-care (01) ==
PROVIDERS: Physician Assistant; Emergency Provider Emergency Medicine; PCP Physician Assistant
DX: S80.12XA Contusion of left lower leg, initial encounter (principal); X58.XXXA Exposure to other specified factors, initial encounter; Y93.9 Activity, unspecified; Y92.9 Unspecified place or not applicable; Y99.9 Unspecified external cause status
CPT/HCPCS: 36415; 80048; 80076; 85025; 85610; 86617; 86618; 87468; 87469; 87478; 87484; 87798; 93971; 99282; 99283

== ENCOUNTER 2024-04-25 08:01 | Outpatient (REF) | payer OTHER, SELFPAY ==
[2024-04-25 09:22] LABS: Alanine Aminotransferase 25 U/L (0-31); Albumin Level 4.2 g/dL (3.5-5.0); Alkaline Phosphatase 71 U/L (39-117); Anion Gap 11 (12-20); Aspartate Amino Transferase 26 U/L (5-31); Bilirubin Total 0.3 mg/dL (0.0-1.0); Blood Urea Nitrogen 15 mg/dL (9-16); Calcium 9.1 mg/dL (8.4-10.2); Carbon Dioxide 29 mmol/L (22-29); Chloride 107 mmol/L (96-108); Estimated Glomerular Filt Rate > 60; Glucose Fasting 94 mg/dL (60-99); Potassium 4.1 mmol/L (3.3-5.1); Sodium 143 mmol/L (135-145); Total Protein 6.9 g/dL (6.5-8.0)
[2024-04-25 09:39] LABS: TSH reflex Free T4 5.42 uIU/mL (0.32-4.0)
[2024-04-25 10:27] LABS: Free T4 (Free Thyroxine) 1.16 ng/dL (0.71-1.85)
== END 2024-04-25 08:02 | disposition home or self-care (01) ==
LOC: HO.LAB 08:01
PROVIDERS: PCP Physician Assistant; Visit Provider Physician Assistant
DX: Z13.1 Encounter for screening for diabetes mellitus (principal); E03.9 Hypothyroidism, unspecified
CPT/HCPCS: 36415; 80053; 84439; 84443

== ENCOUNTER 2024-06-16 11:00 | Outpatient (REF) | payer OTHER, SELFPAY ==
--- NOTE | ~2024-06-16 | MM_ITS ---
EXAMINATION: MM SCREENING DIGITAL BREAST TOMOSYNTHESIS, BILATERAL CLINICAL INFORMATION: Screening. Asymptomatic. COMPARISON: Mammography: Comparison is made with available priors TECHNIQUE: Digital breast mammography with tomosynthesis is performed in both the craniocaudal and mediolateral oblique views along with computer-aided detection (CAD). FINDINGS: The breasts are extremely dense, which lowers the sensitivity of mammography (ACR BI-RADS breast composition Category d). There are no significant masses, abnormal calcifications, or other abnormalities. MM/MM tomosynthesis screening BI IMPRESSION: No mammographic evidence of malignancy. ASSESSMENT: BI-RADS BI-RADS 1 - Negative RECOMMENDATION: Routine annual mammography screening. 1 year F/U This examination should not preclude the clinical evaluation of a suspicious palpable abnormality. This patient's information was entered into a reminder system with a target due date for their next mammogram. Electronically signed by: Stephanie Moreno DO 06/26/2024 04:39 PM [facility]
--- NOTE | ~2024-06-16 | MM_ITS ---
EXAMINATION: DXA BONE DENSITY AXIAL HISTORY: Estrogen deficiency TECHNIQUE: [employer] Dual energy absorptiometry (DEXA) of the lumbar spine, total left hip, and femoral neck was performed. COMPARISON: There are no prior studies for comparison. FINDINGS: The bone mineral density of the lumbar spine is 0.914 with a T-score of -2.2, and a Z-score of -0.7. The bone mineral density of the left total hip is 0.748 with a T-score of -2.1, and a Z-score of -0.9. The bone mineral density of the left femoral neck is 0.772 with a T-score of -1.9, and a Z-score of -0.4. FRACTURE RISK: The FRAX index suggests a risk of major osteoporotic fracture of 12.6%, and of hip fracture 0.9%. MM/XR DEXA axial skeleton IMPRESSION: Based on bone mineral density, and according to World Health Organization (WHO) criteria, the diagnosis is consistent with osteopenia. All bone density values are in grams per centimeter squared (g/cm2). Statistically, 68% of repeat scans fall within 1 SD (+/- 0.010 g/cm2 for AP spine L1-L4) and 1 SD (+/- 0.012 g/cm2 for femur total) FRAX is a trademark of the [employer]'s [employer] for Metabolic Bone Disease, a World Health Organization (WHO) Collaborating Center. Electronically signed by: Quentin Juárez MD 06/26/2024 11:23 AM [facility]
--- OUTSIDE RECORDS SUMMARY | 2024-06-16 13:09 | XMS_ITS | Clinical Summary ---
Author Organization [facility] Address [address] [place] [address] Care Team Providers Care Architectural Superintendent Name Role Phone Alison Gamez [facility] Primary Care Provider [phone] Source Comments PLEASE NOTE, if this patient is a minor, it may be UNLAWFUL to discuss sensitive information that is contained in these records (such as FAMILY PLANNING, MENTAL HEALTH or SUBSTANCE ABUSE) with the minor patient's parent or other person without the patient's specific authorization.[facility] Allergies Active Allergy Reactions Criticality Noted Date Comments Aspirin (Bulk) Other (See Comments) 07/19/2015 Morphine (Bulk) Other (See Comments) 07/19/2015 Medications neomycin-polymyxi n-hydrocortisone (CORTISPORIN) 3.5-10,000-1 mg/mL-unit/mL-% otic suspensionIndicat ions:Irritation of ear, right,Bilateral impacted cerumen Place 5 Drops into the right ear 3 (three) times daily. 10 mL 0 04/23/2016 Active levothyroxine (SYNTHROID, LEVOTHROID) 75 mcg tabletIndications :Hypothyroidism, unspecified type TAKE 1 TAB BY MOUTH ONCE DAILY 30 Tab 4 05/31/2017 Active Active Problems Problem Noted Date Diagnosed Date Hearing loss 08/27/2017 Overview (08/27/2017): [facility]nose[facility]throat surgeons 08-24-17 sensorineural hearing loss, bilateral, unspecified cleft palate with unilateral cleft lip, other specified disorders of Eustachian tube, bilateral Abnormal screening mammogram 08/18/2017 Overview (08/18/2017): [facility] Diagnostic Imaging Department 08/12/2017 1. No mammographic evidence of malignancy. 2. Annual screening mammography is recommended. 3. If there is an elevated lifetime risk of breast cancer, given the breast density, screening with MRI must be strongly considered. A negative mammogram in the presence of clinically suspicious palpable abnormality does not preclude the possibility of malignancy or alter the indications for biopsy. Hypothyroidism 07/19/2015 Gastroesophageal reflux disease without esophagi tis 07/19/2015 H/O cleft palate S/P Surgery 07/19/2015 S/P partial hysterectomy 07/19/2015 Immunizations Name Administration Dates Next Due TDAP 04/18/2017 Family History Medical History Relation Name Comments Diabetes Maternal Uncle Cancer Mother Hypertension Mother Relation Name Status Comments Father Alive Maternal Uncle Mother Alive Social History Tobacco Use Types Packs/Day Years Used Date Smoking Tobacco: Never Smokeless Tobacco: Never Alcohol Use Standard Drinks/Week Comments No 0 (1 standard drink = 0.6 oz pur e alcohol) Social Connections Answer Date Recorded Social Connections and Isolation 0 01/15/2019 Financial Resource Strain Answer Date R ecorded Financial Resource Strain 0 2018 Stress Answer Date Recorded Stress 0 01/15/2019 Physical Activity Answer Date Recorded Physical Activity 0 01/15/2019 Food Insecurity Answer Date Recorded Food 0 01/15/2019 Transportation Needs Answer Date Record ed Transportation 0 01/15/2019 Housing Stability Answer Date Recorded Housing 0 01/15/2019 Safety and Environment Answer Date Owen rded Safety 0 01/15/2019 Utilities Answer Date Recorded Utilities 0 01/15/2019 Employment Answer Date Recorded Employment 0 01/15/2019 Comments No Sex and Gender Information Value Date Recorded Sex Assigned at Female 04/23/2017 1:18 PM PST Legal Sex Female 8:00 AM PST Gender Identity Female 04/23/2017 1:18 PM PST Sexual Orientation Straight 04/23/2017 1: 18 PM PST Last Filed Vital Signs Vital Sign Reading Time Taken Comments Blood Pressure 102/74 04/23/2017 3:51 PM EST Pulse 120 04/23/2017 3:51 PM EST Temperature 36.4 ??C (97.6 ??F) 04/23/2017 3:51 PM ES T Respiratory Rate 20 04/23/2017 3:51 PM EST Oxygen Saturation - - Inhaled Oxygen Concentration - - Weight 43.1 kg (95 lb) 04/23/2017 3:51 PM EST Height 154.9 cm (5' 1 ) 09/29/2016 3:56 PM EDT Body Mass Index 17.95 09/29/2016 3:56 PM EDT Plan of Treatment Not on file Insurance [facility] ACE Member Subscriber Plan / Payer (Ef fective 2015-Present) Name:Zack Diaz Margaret Nicholas Relation to Subscriber:Self Name:Dixon JoyMargaret sotelo Payer ID:[id number] Group ID:Not on file Type:Medicaid Address: [facility] [id number] [place] [address] Care Teams Architectural Superintendent Relationship Specialty Start Date End Date Alison Gamez FNP [address] [place] [address] PCP - General 07/19/18
== END 2024-06-16 11:01 | disposition home or self-care (01) ==
LOC: HO.MAMMO 11:00
PROVIDERS: PCP Physician Assistant; Visit Provider Physician Assistant
DX: Z12.31 Encounter for screening mammogram for malignant neoplasm of breast (principal); Z13.820 Encounter for screening for osteoporosis; Z78.0 Asymptomatic menopausal state; Z82.62 Family history of osteoporosis
CPT/HCPCS: 77063; 77067; 77080

== ENCOUNTER → 2024-06-16 11:30 | Outpatient (BNV) | payer OTHER, SELFPAY | PROVIDERS: PCP Physician Assistant; Visit Provider Radiology Diagnostic Radiology | DX: Z12.31 Encounter for screening mammogram for malignant neoplasm of breast (principal) | CPT/HCPCS: 77063; 77067 ==

== ENCOUNTER 2024-07-03 12:39 | Outpatient (REF) | payer OTHER, SELFPAY ==
--- OUTSIDE RECORDS SUMMARY | 2024-07-03 13:39 | XMS_ITS | Clinical Summary ---
Author Organization [facility] Address [address] [place] [address] Care Team Providers Care Medical Billing Coder Name Role Phone Alison Gamez [facility] Primary Care Provider [phone] Source Comments PLEASE NOTE, if this patient [...] bilateral Abnormal screening mammogram 08/18/2017 Overview (08/18/2017): [facility] Diagnostic Imaging Department 08/12/2017 1. [...] Plan of Treatment Not on file Insurance [facility] ACE Member Subscriber Plan / Payer (Ef fective 2015-Present) Name:Zack Diaz Margaret Nicholas Relation to Subscriber:Self Name:Dixon SanteeMargaret sotelo Payer ID:[id number] Group ID:Not on file Type:Medicaid Address: [facility] [id number] [place] [address] Care Teams Medical Billing Coder Relationship Specialty Start Date End Date Alison Gamez FNP [address] [place] [address] PCP - General 07/19/18
[2024-07-03 14:46] LABS: TSH reflex Free T4 0.92 uIU/mL (0.32-4.0)
== END 2024-07-03 12:40 | disposition home or self-care (01) ==
LOC: HO.LAB 12:39
PROVIDERS: PCP Physician Assistant; Visit Provider Physician Assistant
DX: E03.9 Hypothyroidism, unspecified (principal)
CPT/HCPCS: 36415; 84443

== ENCOUNTER 2024-12-04 10:14 | Outpatient (AMB) | payer OTHER, SELFPAY ==
--- NOTE | 2024-12-04 10:15 | AM.OFFWIN_ITS ---
Intake Vital Signs 12/04/24 10:16 Height 5 ft 1.5 in Weight 100 lb 4 oz BMI 18.6 BP 100/70 Blood Pressure Location Rt brachial Position Sitting Pulse 123 H Pulse Source Pulse Oximeter Temp 97.1 F Pulse Oximetry (%) 99 Oxygen Delivery Method Room Air Intake Visit Reasons: EP RT hand pain Intake Note: Patient presents with right pain after hitting it on a chris nail times 1 day Patient Tobacco Use Status: Never used Tobacco Is last menstrual period known: No Post menopausal: No Patient : No Allergies egg Allergy (Severe, Verified 12/04/24 10:20) Gastrointestinal Upset acetaminophen (Tylenol) Allergy (Intermediate, Verified 12/04/24 10:20) Vomiting aspirin Allergy (Unknown, Verified 12/04/24 10:20) ringing in the ears morphine Allergy (Unknown, Verified 12/04/24 10:20) blood pressure drop, Blood Pressure drops Do you need a note to return to daycare/school/sports/work: No HPI HPI Comments History of Present Illness Details 54 y/o Female patient who presents to [facility] walk [facility] with c/o Puncture wound right hand. Pt reports that her hand Hit a chris Nail yesterday. Denies any bleeding or Open wounds. Pt had her Last Tdap 2015 - asking for Tdap Booster. [facility] Medical History (Updated 12/04/24 @ 10:56 by Deloris Marin NP) Immunization due Kauffman angioma Abnormal Pap smear of cervix Fibromyalgia Hypothyroid Surgical History History of partial hysterectomy H/O plastic surgery Family History Father Diabetes Prostate cancer Mother HTN (hypertension) Osteoporosis Maternal Grandmother Breast cancer Maternal Aunt Breast cancer Family/Other Breast cancer Social History Household Members: Spouse Housing: House Alcohol intake: never Patient Tobacco Use Status: Never used Tobacco e-Cigarette/Vaping Use: Never Used Patient : No service: No Current occupational status: employed 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 Current occupational exposures/hazards: No Gender identity: Female Cognitive needs: No Hearing needs: No Vision needs: Yes Female Reproductive History Menstrual Age of Menarche: 12 Review of Systems Const All systems reviewed & are unremarkable except as noted in HPI and below Physical Exam Vital Signs: Last Vital Signs Temp 97.1 F 12/04/24 10:16 Pulse 123 H 12/04/24 10:16 BP 100/70 12/04/24 10:16 Pulse Ox 99 12/04/24 10:16 Oxygen Delivery Method Room Air 12/04/24 10:16 BMI result Body Mass Index 18.6 Const General: no acute distress Nutritional Appearance: thin Orientation/consciousness: patient oriented x3 Resp Effort & Inspection: normal respiratory effort Cardio Heart sounds: S1 normal heart sound present and S2 normal heart sound present Neuro General: patient oriented x3, gait normal and moves all extremities Extrem Other: No visible Wounds right palm/hand. Psych Speech and movement: Normal speech and movement present Assessment & Plan Assessment & Plan (1) Immunization due: Code(s): Z23 - Encounter for immunization Plan: Ordered Tdap No visible Open wound Coding Level of Care Code Est Pt Level 4 (90042) Diagnoses Immunization due Z23 Time Spent (min) 20
[2024-12-04 10:16] VITALS: BP 100/70; PULSE 123; TEMP 36.2; O2SAT 99; BMI 18.6
--- OUTSIDE RECORDS SUMMARY | 2024-12-04 10:56 | XMS_ITS | Clinical Summary ---
Author Organization [facility] Address [address] [place] [address] Care Team Providers Care Personnel Placement Specialist Name Role Phone Alison Gamez [facility] Primary Care Provider [phone] Source Comments PLEASE NOTE, if this patient [...] bilateral Abnormal screening mammogram 08/18/2017 Overview (08/18/2017): [facility] Diagnostic Imaging Department 08/12/2017 1. [...] Surgery 07/19/2015 S/P partial hysterectomy 07/19/2015 Immunizations Immunization Administration Dates Next Due TDAP 04/18/2017 Family [...] 120 04/23/2017 3:51 PM EST Temperature 36.4 C (97.6 F) 04/23/2017 3:51 PM EST Respiratory Rate 20 04/23/2017 3:51 PM EST Oxygen Saturation - - Inhaled Oxygen Concentration - - Weight 43.1 kg (95 lb) 04/23/2017 3:51 PM EST Height 154.9 cm (5' 1 ) 09/29/2016 3:56 PM EDT Body Mass Index 17.95 09/29/2016 3:56 PM EDT Plan of Treatment Not on file Insurance [facility] ACE Member Subscriber Plan / Payer (Ef fective 2015-Present) Name:Margaret Bey Relation to Subscriber:Self Name:Zack Diaz Zacjuan Peterson Payer ID:[id number] Group ID:Not on file Type:Medicaid Address: [facility] [address] [place] [address] Care Teams Personnel Placement Specialist Relationship Specialty Start Date End Date Alison Gamez FNP [address] [place] [id number] PCP - General 07/19/18
== END 2024-12-04 11:28 | disposition home or self-care (01) ==
PROVIDERS: PCP Physician Assistant; Visit Provider Nurse Practitioner Family
DX: Z23 Encounter for immunization (principal)

== ENCOUNTER → 2024-12-04 10:14 | Outpatient (BNVA) | payer OTHER, SELFPAY | PROVIDERS: PCP Physician Assistant; Visit Provider Nurse Practitioner Family | DX: Z23 Encounter for immunization (principal); M79.641 Pain in right hand | CPT/HCPCS: 90471; 90715; 99212 ==

== ENCOUNTER 2025-01-16 10:00 | Outpatient (RCR) | payer OTHER, SELFPAY ==
--- NOTE | 2024-08-10 13:46 | MHC.PT.EP ---
[facility] [place] Office [place] Office [place] Office [address] Brayden Spivey [address] [phone] F: [phone] F: [phone] F: [phone] F: [phone] Physical Therapy Plan of Care Date of Evaluation: 08/10/24 Date of Surgery: Diagnosis: pelvic and perineal pain Assessment: 53 y/o women referred to pelvic floor PT with pelvic and perineal pain. Pt c/c of B hip/glut pain and UI that occurs gradually throughout the day, resulting in difficulty moving in the morning, exercising, and she would like to prevent progression of sx. Examination shows decreased hip ROM, decreased hip/core strength, TTP, poor stabilization with ASLR, and impaired gait pattern. Pt declines pelvic floor internal assessment at this time and would like to start with PT for hips at this time. Recommend PT 1x/week for 10 weeks to address impairments, implement HEP, and optimize functional mobility. Frequency and Duration: The patient will be seen 1x/week for 10 weeks Short Term Goals: 5 weeks I with HEP Improve hip ER ROM to 25* (IR 15*) Event Specialist Product Demonstrator Goals: 10 weeks I with HEP and self management of sx Pt will be able to walk > 30 minutes with pain < 3/10 in hips Pt will reports 50% improvement in UI with pad use < 2 pads/day Treatment Plan: Modalities to reduce pain, spasms and effusion. Manual therapy to restore motion and function. Therapeutic exercise to improve strength and flexibility. Neuromuscular re-education for posture and balance. Therapeutic activities to return to functional activities of daily living. Electronically signed by: Please sign and return to therapist. Thank you for your referral.
--- NOTE | 2025-01-16 11:20 | MHC.PT.DC ---
[facility] [place] Office [place] Office [place] Office [address] Brayden Spivey [address] [phone] F: [phone] F: [phone] F: [phone] F: [phone] Physical Therapy Discharge Report Diagnosis: pelvic and perineal pain Date of Surgery: Date of Evaluation: 08/10/24 Date of Discharge: 01/16/25 Treatments to Date: 10 Cancellations to Date: 1 No Shows to Date: 0 Discharge Status: Improved Function Independent with HEP Discharge Summary: Overall pt reports PT has been helpful with improved proprioception, awareness of signals that she is overdoing it, recovery days, body checks-ins, and how to better manage flare-ups. She is able to walk for longer periods with less hip pain and she is wearing less liners for UI. At this time, reviewed home program of pilates and sun salutations with modifications and emphasized importance of slow progression. She also will talk with provider regarding hyaluronic acid for pelvic floor health. She is appropriate for d/c at this time Electronically signed by: Catia Haskins PT Please sign and return to therapist. Thank you for your referral.
== END 2025-01-16 11:20 | disposition home or self-care (01) ==
LOC: HO.PT 10:00
PROVIDERS: PCP Physician Assistant; Visit Provider Physician Assistant
DX: R10.2 Pelvic and perineal pain (principal)
CPT/HCPCS: 97110; 97112; 97140; 97162; 97530

== ENCOUNTER 2025-04-10 13:57 | Outpatient (AMB) | payer OTHER, SELFPAY ==
--- NOTE | 2025-04-10 14:01 | A.OFFVIS_ITS ---
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 Aware of limitations and triggers. Currently not sexually active. Attempting to eat a healthy diet with calcium and vitamin D and stays active with exercise. Last pap smear; 2021, negative. Last mammogram; 2024 2024. Colonoscopy is UTD. Family history of breast cancer. 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 Current occupational exposures/hazards: No Gender identity: Female Cognitive needs: No Hearing needs: No Vision needs: Yes Female Reproductive History Menstrual Age of Menarche: 12 Total pregnancies: 0 Date of last pap smear: 04/13/22 (neg pap and hpv) History of abnormal pap smear: Yes (10/16 +hpv) Date of Mammogram: 06/17/24 (Birad 1) Date of last Bone Density Screenin06/16/24 Review of Systems Const All systems reviewed & are unremarkable except as noted in HPI and below Reports as per HPI Eyes Reports no additional complaints ENT Reports no additional complaints Card Reports no additional complaints Resp Reports no additional complaints GI Reports as per HPI and Reports no additional complaints Reports as per HPI Musc Reports no additional complaints Skin/Breast Reports as per HPI Neuro Reports no additional complaints Psych Reports no additional complaints Endo Reports no additional complaints Renato/Lymph Reports no additional complaints Aller/Immun Reports no additional complaints Physical Exam Vital Signs: Last Vital Signs BP 102/66 04/10/25 14:05 BMI result Body Mass Index 19.0 Const General: cooperative, healthy appearing, no acute distress, well developed and alert Orientation/consciousness: patient oriented x3 HEENT Head: Yes normal to inspection Eyes General: appearance normal, both eyes and all related structures Neck Neck: Yes normal visual inspection Thyroid: Thyroid normal Chest Chest palpation & inspection: normal inspection of the chest and other (no puckering, dimpling, peau de orange, retraction, discharge, masses) Breast/axilla inspection: normal inspection of the breasts Breast/axilla palpation: normal palpation of the breasts Resp Effort & Inspection: normal respiratory effort GI Inspection: Yes normal to inspection Palpation (GI): Soft to palpation Rectal Exam - Female: deferred General: Yes bladder normal to palpation External Female Exam: normal external appearance and normal appearance of the urethra Speculum Exam - Vagina: normal appearance of the vagina (Narrow inlet), normal palpation, normal vaginal discharge and vagina atrophic Speculum Exam - Cervix: normal appearance of the cervix and normal palpation Bimanual exam- vagina & uterus: normal bimanual exam, normal palpation, uterine size normal, bladder normal to palpation, normal palpation and non-tender Bimanual Exam- Adnexa, other: no masses Skin General skin exam: no rashes or lesions noted Rashes: no rashes Neuro General: patient oriented x3 Cognition (Neuro): normal cognition Extrem General: Yes normal to inspection Psych Attitude: cooperative Thought process: Normal thought process present Assessment & Plan Assessment & Plan (1) Encounter for annual routine gynecological examination: Code(s): Z01.419 - Encounter for gynecological examination (general) (routine) without abnormal findings Category: Medical Plan Discussed: Current recommendations for pap smears per ASCCP guidelines. Breast awareness, periodic self breast exams and yearly mammogram. Maintain a healthy lifestyle, well balanced diet including Calcium 1,200 mg and Vitamin D 600 IU daily, and routine exercise. Questions regarding hormone therapy. Internet resources reviewed. Contact the office with any postmenopausal bleeding. Patient verbalizes understanding and agrees to the plan of care. She was given opportunity to ask questions and all questions were answered to the best of my ability. RTO in 1 year for annual manager heart failure exam. This note is constructed using voice recognition software. While every effort has been made to ensure accuracy, cloth grader supervisor errors may have been included. Coding Level of Care Code Est Pt Prev Care 40-64y(93448) Diagnoses Encounter for annual routine gynecological examination Z01.419
[2025-04-10 14:05] VITALS: BP 102/66; BMI 19.0
== END 2025-04-10 14:57 | disposition home or self-care (01) ==
LOC: HO.HWS 13:58
PROVIDERS: PCP Physician Assistant; Visit Provider Advanced Practice Midwife
DX: Z01.419 Encounter for gynecological examination (general) (routine) without abnormal findings (principal)
CPT/HCPCS: 99396; 99459

== ENCOUNTER → 2025-04-10 13:57 | Outpatient (BNVA) | payer OTHER, SELFPAY | PROVIDERS: PCP Physician Assistant; Visit Provider Advanced Practice Midwife | DX: Z01.419 Encounter for gynecological examination (general) (routine) without abnormal findings (principal); Z86.19 Personal history of other infectious and parasitic diseases; Z80.3 Family history of malignant neoplasm of breast | CPT/HCPCS: 99396 ==

== ENCOUNTER 2025-04-25 08:56 | Outpatient (REF) | payer OTHER, SELFPAY ==
--- NOTE | ~2025-04-25 | XR_ITS ---
EXAMINATION: XR KNEE, LEFT CLINICAL INFORMATION: M25.562 - Pain in left knee COMPARISON: None available. TECHNIQUE: Four views of the left knee. FINDINGS: No fracture or joint effusion. Alignment is anatomic. Joint spaces are maintained. No abnormal soft tissue calcification. XR/XR knee LT 3V IMPRESSION: No acute osseous findings Electronically signed by: Meek Yee MD 04/25/2025 02:56 PM EST
[2025-04-25 09:07] LABS: MANUAL DIFF FLAG NO
[2025-04-25 09:45] LABS: Hematocrit 40.9 % (37.0-47.0); Hemoglobin 13.2 g/dl (12.0-16.0); Imm Gran Abs Auto 0.01 X10*3/uL (0.00-0.03); Imm Gran Pct Auto 0.2 % (0.0-0.4); Lymphocytes Absolute Auto 1.2 X10*3/uL (1.2-4.9); Mean Corpuscular HGB Conc 32.3 g/dl (31.0-35.0); Mean Corpuscular Hemoglobin 27.4 pg (27.0-33.0); Mean Corpuscular Volume 85.0 fL (80.0-98.0); NRBC Abs Auto 0.000 X10*3/uL (0.0-0.012); NRBC Pct Auto 0.0 /100WBC (0.0-0.2); Platelet Count 299 X10*3/uL (160-400); Red Blood Count 4.81 X10*6/uL (4.20-5.50); White Blood Count 4.3 X10*3/uL (4.8-10.8)
[2025-04-25 11:04] LABS: Alanine Aminotransferase 19 U/L (0-31); Albumin Level 4.6 g/dL (3.5-5.0); Alkaline Phosphatase 66 U/L (39-117); Anion Gap 9 (12-20); Aspartate Amino Transferase 24 U/L (5-31); Blood Urea Nitrogen 11 mg/dL (9-16); Calcium 9.3 mg/dL (8.4-10.2); Carbon Dioxide 30 mmol/L (22-29); Chloride 107 mmol/L (96-108); Cholesterol 196 mg/dL (<200); Estimated Glomerular Filt Rate > 60; HDL Cholesterol 71 mg/dL (>40); Potassium 4.2 mmol/L (3.3-5.1); Sodium 142 mmol/L (135-145); Total Protein 7.3 g/dL (6.5-8.0); Triglycerides 67 mg/dL (<150)
[2025-04-25 11:10] LABS: Reflex LDLD? No
[2025-04-25 11:41] LABS: Free T4 (Free Thyroxine) 1.21 ng/dL (0.71-1.85)
== END 2025-04-25 08:57 | disposition home or self-care (01) ==
LOC: HO.XRAY 08:56
PROVIDERS: PCP Physician Assistant; Visit Provider Student in an Organized Health Care Education/Training Program
DX: Z00.00 Encounter for general adult medical examination without abnormal findings (principal); M25.562 Pain in left knee; Z13.220 Encounter for screening for lipoid disorders; E03.9 Hypothyroidism, unspecified
CPT/HCPCS: 36415; 73562; 80053; 80061; 84439; 84443; 85025